=== PATIENT | female | born 1995 | race Caucasian/White ===

== ENCOUNTER 2022-07-22 08:00 | Outpatient (RCR) | payer BC, OTHER ==
[~2022-07-22] VITALS: Ht 162.6 cm; Wt 58.4 kg
[2022-07-22] VITALS (9 sets, daily range): BP systolic 83–99; BP diastolic 47–59; PULSE 71–99; TEMP 97.6–98.1
[~2022-07-22 08:00] MED LIST: ALEVE 220MG220 MG PO; PRENATAL TABLET PO; TYLENOL 500MG500 MG PO; ZOFRAN8 MG PO
--- NOTE | 2022-07-22 11:05 | NUR ---
Pt tolerating transfusion with no problem. pt has been sleeping, but is not up and amb to bathroom with steady gait. remains with patient. no needs expressed at this time. call light in reach
== END 2022-07-22 13:00 | disposition home or self-care (01) ==
LOC: EUO 08:00 → EDSTATUS 08:00 → EUO 13:00
DX: D61.818 Other pancytopenia (principal)
CPT/HCPCS: J7050; P9040

== ENCOUNTER 2022-08-16 02:52 | Observation (INO) | payer BC, OTHER ==
[~2022-08-16] VITALS: Ht 162.6 cm; Wt 51.6 kg
[2022-08-16] VITALS (14 sets, daily range): BP systolic 107–125; BP diastolic 55–72; PULSE 63–84; TEMP 97.8–98.5
[2022-08-16 03:29] LABS: MEAN CELL VOLUME 95 fl (80.0-100.0); MEAN CORPUSCULAR HGB CONC 33 g/dl (33.0-37.0); PLATELET COUNT 106 K/mm3 (130-400); RED BLOOD COUNT 2.59 M/mm3 (4.10-5.30); REDCELL DISTRIBUTION WIDTH-CV 16.9 % (11.5-14.5); RETIC # 0.03 M/mm3 (0.02-0.16)
[2022-08-16 03:32] LABS: HEMATOCRIT 24.5 % (37.0-47.0); MEAN CORPUSCULAR HEMOGLOBIN 31 pg (27-31)
[2022-08-16 03:44] LABS: ALANINE AMINOTRANSFERASE 28 U/L (0-55); ALKALINE PHOSPHATASE 70 U/L (40-150); ANION GAP 12 mmol/L (7-16); AST,SGOT 33 U/L (5-34); BILIRUBIN,TOTAL 0.4 mg/dL (0.2-1.2); BLOOD UREA NITROGEN 11 mg/dL (7-19); CALCIUM 9.8 mg/dL (8.4-10.2); CARBON DIOXIDE 21 mmol/L (22-29); CHLORIDE 107 mmol/L (98-107); CREATININE, serum 0.75 mg/dL (0.57-1.11); GLUCOSE 104 mg/dL (70-99); LACTATE DEHYDROGENASE 676 U/L (125-220); POTASSIUM 4.2 mmol/L (3.5-4.5); SODIUM 140 mmol/L (136-145); TOTAL PROTEIN 8.3 gm/dL (6.2-8.1)
[2022-08-16 03:46] LABS: INR 1.1 (0.8-3.0); PARTIAL THROMBOPLASTIN TIME 24.3 SECONDS (26.0-37.0); PROTHROMBIN TIME 12.5 SECONDS (9.7-12.8)
[2022-08-16 03:53] LABS: HCG,QUANTITATIVE < 1 mIU/mL
[2022-08-16 04:22] LABS: LYMPHOCYTE 39 % (20.0-51.0); NEUTROPHILS 17 % (42.0-75.2)
[2022-08-16 04:24] LABS: ANISOCYTOSIS 1+; HYPOCHROMIA 1+; PLATELET ESTIMATE DECREASED (NORMAL); STOMATOCYTE 1+; TEAR DROP CELLS 1+
[2022-08-16] MEDS ORDERED: PREDNISONE20 MG PO (05:05)
[2022-08-16] MEDS ORDERED: CLARITIN 1010 MG/TAB PO (06:13)
--- NOTE | 2022-08-16 06:30 | NUR ---
[facility] w/severe lower extremity pain- states pain 9/10, sharp/stabbing pain, was just given Dilaudid in ER ,, IV fluids of NS at 125cc/hr, VSS. Will give report to oncoming nurse.
[2022-08-16 08:11] LABS: PATHOLOGY DIFF REVIEW OK +
--- NOTE | 2022-08-16 08:32 | NUR ---
Shift assessment is done this morning. Patient is resting on her bed. When this nurse visited in morning, pt. said she is in pain rating 9.5/10. ZION Horn gave her pain meds. After 50 minutes pt. said her pain is still 8/10. IV dilaudid 1mg given. is at her bedside. Will continue to monitor.
--- NOTE | 2022-08-16 10:46 | NUR ---
On her reassessment after 1mg diluadid, patient is complaining pain 10/10. Barnett is given at 0931. On reassessment of norco, patient says her pain is untolerable and crying with pain. Dr. Kelley is notified. He said to give her scheduled ibuprofin at this time. Ibuprofin is given. Will continue to monitor.
--- NOTE | 2022-08-16 12:00 | NUR ---
Tag Meter Operator met with Patient and family at bedside to conduct Care Managment Assessment and discuss discharge planning. Patient lives in [place], [place] with her , Zen P:[phone]. Patient is established with PCP Dr. Marina and is covered by [facility] life and Casualty, [facility], and a commercial insurance. Patient recieves Rx services through [facility] on [facility]. Patient denies the use of O2, endorses the use of 4WW prior to admission. Patient reports independency with ADLS and standby assist needs for IADLs, also stating that her prepares her meals for her. PAtient does not have Advanced Directives at this time and declines forms. Discharge Plan: Pending treatment team assessment of needs.
--- NOTE | 2022-08-16 12:31 | NUR ---
Initial visit: Sas Etl Developer stopped by room on rounds. Pt was resting and content with friend by her side. Pt has no needs right now. Sas Etl Developer will follow up as needed.
[2022-08-16 12:34] LABS: COLLECTION METHOD CLEAN CATCH
[2022-08-16 12:52] LABS: MUCOUS Present (NOT PRESENT); URINE BACTERIA Rare /hpf (NONE SEEN); URINE RBC 0-2 /hpf (0-2)
[2022-08-16 12:54] LABS: URINE APPEARANCE Clear (CLEAR/HAZY); URINE COLOR Yellow (YELLOW)
[2022-08-16 12:55] LABS: URINE BLOOD 2+ (NEGATIVE); URINE GLUCOSE Negative (NEGATIVE); URINE KETONE Negative (NEGATIVE); URINE NITRATE Negative (NEGATIVE); URINE PROTEIN(semi-quant) Negative (NEGATIVE); URINE UROBILINOGEN 0.2 E.U/dL (0.2-1.0)
--- NOTE | 2022-08-16 15:31 | NUR ---
Critical D-Dimer lab called to Dr. Kelley. No new orders received at this time.
[2022-08-17] VITALS (11 sets, daily range): BP systolic 112–134; BP diastolic 58–71; PULSE 70–104; TEMP 98.1–98.9
[2022-08-17 14:21] LABS: IRON,SERUM 152 ug/dL (50-175)
[2022-08-17 16:20] LABS: MEAN CELL VOLUME 93 fl (80.0-100.0); MEAN CORPUSCULAR HGB CONC 34 g/dl (33.0-37.0); MEAN PLATELET VOLUME 13.5 fl (7.4-10.4); PLATELET COUNT 119 K/mm3 (130-400); RED BLOOD COUNT 2.26 M/mm3 (4.10-5.30); REDCELL DISTRIBUTION WIDTH-CV 17.6 % (11.5-14.5)
[2022-08-17 16:22] LABS: HEMATOCRIT 21.1 % (37.0-47.0); HEMOGLOBIN 7.1 g/dl (12.5-16.0); MEAN CORPUSCULAR HEMOGLOBIN 31 pg (27-31)
[2022-08-17 16:24] LABS: ANISOCYTOSIS 1+; BAND 2 % (0-10); BURR CELLS 1+; LYMPHOCYTE 31 % (20.0-51.0); NEUTROPHILS 14 % (42.0-75.2); PLATELET ESTIMATE DECREASED (NORMAL)
--- NOTE | 2022-08-17 18:30 | NUR ---
PT ACCEPTED TO [facility] TO ROOM [id number]. REPORT GIVEN TO ZION MAI BY SEM MANAGER
[2022-08-18 03:24] VITALS: BP 140/70; PULSE 92; TEMP 98.8
[2022-08-18 08:00] VITALS: BP 120/76; PULSE 87; TEMP 98.2
[2022-08-18 09:30] VITALS: BP_SYST 120
--- NOTE | 2022-08-18 11:41 | NUR ---
Shift assessment is done this morning. No new changes on patient. Discharged to [facility]. EMS picked her up at 1105 alongside her .
[2022-08-21 08:01] LABS: PATHOLOGY DIFF REVIEW OK
[2022-08-25 17:10] LABS: A/G RATIO (PEP) 0.9 (0.7-1.7); BETA GLOBULINS (PEP) 0.6 g/dL (0.7-1.3)
== END 2022-08-18 11:05 | disposition short-term general hospital (02) ==
LOC: COL.ER 02:52 → MEDICAL 05:01
PROVIDERS: Emergency Medicine; Internal Medicine; Student in an Organized Health Care Education/Training Program; ADMIT Internal Medicine
DX: M25.551 Pain in right hip (principal); M25.552 Pain in left hip; M25.572 Pain in left ankle and joints of left foot; M25.571 Pain in right ankle and joints of right foot; M25.561 Pain in right knee; M25.562 Pain in left knee; R53.81 Other malaise; D61.818 Other pancytopenia; D72.829 Elevated white blood cell count, unspecified; E77.8 Other disorders of glycoprotein metabolism; M54.50 Low back pain, unspecified
CPT/HCPCS: G0378; J1170; J1200; J2060; J2270; J2405; J2920; J7030

== ENCOUNTER 2023-03-12 12:39 | Outpatient (RCR) | payer BC, OTHER ==
[2023-03-12] VITALS (13 sets, daily range): BP systolic 88–118; BP diastolic 42–63; PULSE 88–123; TEMP 98.4–102.9
[~2023-03-12] VITALS: Ht 162.6 cm; Wt 57.0 kg
[~2023-03-12 12:39] MED LIST changes: +AMICAR500 MG PO; +CLARITIN 1010 MG/TAB PO; +COMPAZINE 110 MG/TAB PO; +CRESEMBA186 MG PO; +FENTANYL 25 MCG TD; +GUAIFENESIN DA473 ML; +HYDROXYURE500 MG/CAP PO; +KLOR-CON20 MEQ PO; +LEVAQUIN 750MG750 M1 PO; +PREDNISONE20 MG PO; +PROCTOCREAM-HC2.5% RC; +PROTONIX 40MG T40 MG PO; +REMERON 15M15 MG/TA1 PO; +ROXICODONE 55 MG/TAB PO; +TRIAMCINOLONE A15 G3 TP; +ZOFRAN ODT4 MG PO; +ZOLOFT 50MG50 MG PO
--- NOTE | 2023-03-12 13:00 | NUR ---
Dr. Enriquez called with CBC results. Per Dr. Enriquez patient should recieve 2 units of platlets that were on hold for her.
--- NOTE | 2023-03-12 13:20 | NUR ---
Pt. to the floor. Pt. is A&OX3, assessment complete. Central line access to rt. Subclavian. Pt. denies reports pain to feet at a 8 on pain scale. Pt. also asking if they would be able to stay for pain management. Dr. Enriquez notified. Pt. denies further needs.
--- NOTE | 2023-03-12 14:58 | NUR ---
First unit of platlets started at this time. See trasfusion vitals. Will remain at bedside for next 15 minutes
--- NOTE | 2023-03-12 16:54 | NUR ---
Second unit of Platelets started at this time. See vital documentation. Pt. denies further needs, will remain at bedside for next 15 minutes
[2023-03-14] MEDS ORDERED: FENTANYL 25 MCG TD (08:31)
[2023-03-14] MEDS ORDERED: OXYCONTIN 20MG20 MG PO (08:31)
[2023-03-14] MEDS ORDERED: TRANSDERM-0.5 MG/21 TD (09:55)
[2023-03-14] MEDS ORDERED: SYSTANE 0.4%-0.1 SOL OU (09:55)
[2023-03-14] MEDS ORDERED: ATIVAN 1MG T1 MG/TAB PO (09:55)
[2023-03-14] MEDS ORDERED: ROXANOL 20MG20 MG/ML SL (09:55)
[2023-03-14] MEDS ORDERED: DULCOLAX S10 MG/SUPP RC (09:55)
== END 2023-03-17 | disposition home or self-care (01) ==
LOC: EUO
DX: C95.90 Leukemia, unspecified not having achieved remission (principal)
CPT/HCPCS: J1170; P9035